=== PATIENT | female | born 1980 | race Caucasian/White ===

== ENCOUNTER 2020-09-16 07:09 | Outpatient (REF) | payer MEDICAID, SELFPAY ==
[2020-09-16 17:35] LABS: Influenza A PCR NEGATIVE (Negative); Influenza B PCR NEGATIVE (Negative); Resp Syncy Virus RNA Qual PCR NEGATIVE (Negative); SARS COV2 PCR INHOUSE POSITIVE (Negative)
== END 2020-09-16 07:10 | disposition home or self-care (01) ==
LOC: HO.LAB 07:09
PROVIDERS: Visit Provider Physician Assistant Medical
DX: Z20.822 Contact with and (suspected) exposure to COVID-19 (principal)
CPT/HCPCS: 0241U; 36415